=== PATIENT | male | born 1985 | race Caucasian/White ===

== ENCOUNTER 2019-08-31 22:15 | Emergency (ER) | payer SELFPAY ==
[2019-08-31 22:26] VITALS: BP 141/90; PULSE 71; RESP 18; TEMP 36.9; O2SAT 97; BMI 32.1
--- NOTE | 2019-08-31 23:16 | W.ED.ABDPA2 ---
HPI - Abdominal Pain General: Chief Complaint: Abdominal Pain Stated Complaint: cp Time Seen by Provider: 08/31/19 23:16 History of Present Illness: HPI narrative: Patient is a 34-year-old male who comes into the ED with abdominal pain, nausea, vomiting and diarrhea. Patient states that symptoms started about a month ago. He gets symptoms of epigastric pain, nausea, vomiting and diarrhea right after he eats. He says that he has a lot of epigastric pain when he lays down at night after he eats and so he has to lay more upright. He says he has a lot of diarrhea and he describes the stools as fatty and floating. The epigastric pain is is starts after he eats and many times it will radiate into his back. He has not eaten anything today to avoid it.pain. He is able to drink fluids and they do not bother him. He is not currently having much abdominal pain or nausea in the ED since he has not eaten anything all day. Denies feeling any acid reflux or indigestion. He does not currently take any Tums or any acid reflux medications. Associated Symptoms: Reports diarrhea, nausea and vomiting; Denies chills, constipation, dysuria, fever(s), hematochezia and hematuria Review of Systems Const: Denies: fever, chills or fatigue Eyes: Denies: change in vision or eye discomfort ENMT: Denies: throat pain, painful swallowing, nasal discharge or nasal congestion Card: Denies: chest pain, palpitations, edema, swelling of feet/ankles, shortness of breath on exertion or shortness of breath when lying down Resp: Denies: shortness of breath, productive cough or non-productive cough GI: Reports: abdominal pain, nausea, vomiting, diarrhea and fatty stool; Denies: constipation or blood in stool : Denies: flank pain, difficulty urinating, painful urination or blood in urine Musc: Denies: neck pain, back pain or extremity swelling Skin/Breast: Denies: rash or new lesion Neuro: Denies: headache, numbness in extremities or weakness in extremities PFS ED PFSH: Social History Smoking and tobacco status: current every day smoker Physical Exam Narrative: EXAM NARRATIVE: Patient is a 34-year-old male who is sitting comfortably on the exam bed when I enter the room. He is showing no signs of acute distress or pain. Const: COMMON NORMALS: oriented x3 HENMT: COMMON NORMALS: normocephalic HEAD & SCALP: normocephalic MOUTH: oral and palatal mucosa normal THROAT: posterior oropharynx normal and uvula midline Neck/C-Spine: COMMON NORMALS: supple GENERAL: Yes normal visual inspection Lymph: LYMPHATIC: no lymphadenopathy noted (no cervical lymphadenopathy noted.) Resp: COMMON NORMALS: normal respiratory effort, no retractions, no use of accessory muscles and clear to auscultation bilaterally AUSCULTATION: clear to auscultation bilaterally Cardio: COMMON NORMALS: regular rate, regular rhythm, S1 normal heart sound, S2 normal heart sound, no gallops, no clicks, no murmurs and peripheral pulses 2+ throughout RATE: regular rate RHYTHM: regular rhythm HEART SOUNDS: S1 normal and S2 normal PERIPHERAL PULSES: pulses 2+ throughout GI: COMMON NORMALS: normal to inspection, nondistended, normoactive bowel sounds, soft to palpation and no masses INSPECTION: Yes central obesity AUSCULTATION: Yes normoactive bowel sounds PALPATION: Yes soft and Yes tender Details: other (epigastric region) : COMMON NORMALS: Yes no CVA tenderness BLADDER/KIDNEY EXAM: Yes no CVA tenderness Back/Pelvis: COMMON NORMALS: no CVA tenderness Extremity: COMMON NORMALS: normal to inspection and normal capillary refill Neuro: COMMON NORMALS: oriented x3 GAIT: Yes normal gait Skin: COMMON NORMALS: no rashes or lesions noted GENERAL SKIN EXAM: no rashes or lesions noted and dry skin Course Vital Signs: Vital signs: Vital Signs Temperature 98.4 F 08/31/19 22:26 Pulse Rate 62 09/01/19 01:00 Respiratory Rate 18 09/01/19 00:23 Blood Pressure 138/88 09/01/19 01:30 Pulse Oximetry 97 09/01/19 00:30 MDM - Abdominal Pain Lab Data: Attestation: I reviewed the patient's lab results. Labs: Lab Results 08/31/19 08/31/19 08/31/19 Range/Units 23:13 23:13 23:13 WBC 13.5 H (4.0-10.0) 10^3/ uL RBC 5.39 H (4.1-5.3) 10^6/u L Hgb 16.6 (11.7-16.6) g/dL Hct 49.3 (42.0-52.0) % MCV 91.5 (80-94) fL MCH 30.8 (28.0-34.0) pg MCHC 33.7 (30.0-36.0) g/dL RDW 13.0 (12.1-15.1) % Plt Count 203 (130-400) 10^3/c mm MPV 11.2 H (7.4-10.4) fL Neut % (Auto) 66.2 % Lymph % (Auto) 26.7 % [place] % (Auto) 5.4 % Eos % (Auto) 0.8 % Baso % (Auto) 0.5 % Neut # (Auto) 8.9 H (1.8-7.7) 10^3/u L Lymph # (Auto) 3.6 (0.8-4.8) 10^3/u L [place] # (Auto) 0.7 (0.2-0.9) 10^3/u L Eos # (Auto) 0.1 (0.0-0.8) 10^3/u L Baso # (Auto) 0.1 (0.0-0.1) 10^3/u L Nucleated RBC % (a uto) 0 % Nucleated RBCs # 0.0 /100WBC Sodium 140 (136-145) mmol/L Potassium 4.1 (3.5-5.1) mmol/L Chloride 105 (98-107) mmol/L Carbon Dioxide 25 (22-29) mmol/L Anion Gap 14.1 (5-19) BUN 7 (6-20) mg/dL Creatinine 1.0 (0.7-1.2) mg/dL GFR Calculation 86.6 L (90-130) mL/min Glucose 105 (65-115) mg/dL Calculated Osmolal ity 286 (285-295) mOsm/k g Calcium 9.1 (8.5-10.5) mg/dL Total Bilirubin 0.5 (0.15-1.2) mg/dL AST 17 (0-40) U/L ALT 21 (0-41) U/L Alkaline Phosphata se 75 (40-130) IU/L Troponin T Baselin e 6 (0-15) ng/mL C-Reactive Protein 3.5 (0.0-4.9) mg/L Total Protein 7.1 (6.6-8.7) g/dL Albumin 4.0 (3.5-5.2) g/dL Globulin 3.1 (1.3-4.6) g/dL Lipase 18 (13-60) U/L Urine Color (Yellow) Urine Appearance (CLEAR) Urine pH (5-7) Ur Specific Gravit y (1.005-1.030) Urine Protein (Negative) Urine Glucose (UA) (Normal) Urine Ketones (Negative) Urine Blood (Negative) Urine Nitrate (Negative) Urine Bilirubin (NEGATIVE) Urine Urobilinogen (Negative) mg/dL Ur Leukocyte Daphne ase (Negative) 09/01/19 Range/Units 00:45 WBC (4.0-10.0) 10^3/ uL RBC (4.1-5.3) 10^6/u L Hgb (11.7-16.6) g/dL Hct (42.0-52.0) % MCV (80-94) fL MCH (28.0-34.0) pg MCHC (30.0-36.0) g/dL RDW (12.1-15.1) % Plt Count (130-400) 10^3/c mm MPV (7.4-10.4) fL Neut % (Auto) % Lymph % (Auto) % [place] % (Auto) % Eos % (Auto) % Baso % (Auto) % Neut # (Auto) (1.8-7.7) 10^3/u L Lymph # (Auto) (0.8-4.8) 10^3/u L [place] # (Auto) (0.2-0.9) 10^3/u L Eos # (Auto) (0.0-0.8) 10^3/u L Baso # (Auto) (0.0-0.1) 10^3/u L Nucleated RBC % (a uto) % Nucleated RBCs # /100WBC Sodium (136-145) mmol/L Potassium (3.5-5.1) mmol/L Chloride (98-107) mmol/L Carbon Dioxide (22-29) mmol/L Anion Gap (5-19) BUN (6-20) mg/dL Creatinine (0.7-1.2) mg/dL GFR Calculation (90-130) mL/min Glucose (65-115) mg/dL Calculated Osmolal ity (285-295) mOsm/k g Calcium (8.5-10.5) mg/dL Total Bilirubin (0.15-1.2) mg/dL AST (0-40) U/L ALT (0-41) U/L Alkaline Phosphata se (40-130) IU/L Troponin T Baselin e (0-15) ng/mL C-Reactive Protein (0.0-4.9) mg/L Total Protein (6.6-8.7) g/dL Albumin (3.5-5.2) g/dL Globulin (1.3-4.6) g/dL Lipase (13-60) U/L Urine Color Yellow (Yellow) Urine Appearance Clear (CLEAR) Urine pH 5 (5-7) Ur Specific Gravit y 1.025 (1.005-1.030) Urine Protein Neg (Negative) Urine Glucose (UA) Norm (Normal) Urine Ketones Negative (Negative) Urine Blood Neg (Negative) Urine Nitrate Negative (Negative) Urine Bilirubin 1+ H (NEGATIVE) Urine Urobilinogen 1 H (Negative) mg/dL Ur Leukocyte Daphne ase Negative (Negative) Imaging Data ^: CT Abd/Pel: Attestation: I personally reviewed and interpreted this imaging study as follows: Radiologist's impression: [address] [address] [address] Scan Report Signed Patient: Richard Morris Unit #: [id number] : 1985 Age/Sex: 34 / M ADM Date: 08/31/19 Loc: ER Room/Bed: Attending Dr: Ordering Provider/Ordering MD: Isac Elise Date of Service: 08/31/19 Procedure(s): CT abdomen pelvis w con* [id number] Accession Number(s): [id number] Report Number: [id number] PROCEDURE INFORMATION: Exam: CT Abdomen And Pelvis With Contrast Exam date and time: 08/31/2019 11:59 PM Age: 34 years old Clinical indication: Abdominal pain; Prior surgery; Surgery date: 6+ months; Surgery type: Appy; Patient HX: C/O epigastric pain w n/v/d intermittent x 1 month; Additional info: N, v, diarrhea, abd pain (epigastric and radiates to back) TECHNIQUE: Imaging protocol: Computed tomography of the abdomen and pelvis with intravenous contrast. Total DLP: 1610.71 mGy-cm Radiation optimization: All CT scans at this facility use at least one of these dose optimization techniques: automated exposure control; mA and/or kV adjustment per patient size (includes targeted exams where dose is matched to clinical indication); or iterative reconstruction. Contrast material: OMNI 300; Contrast volume: 95 ml; Contrast route: 20G; COMPARISON: No relevant prior studies available. FINDINGS: Lungs: Limited assessment lung bases reveals mild dependent atelectasis. Liver: Liver unremarkable. Gallbladder and bile ducts: Gallbladder without visible evidence of cholelithiasis. No intra or extrahepatic biliary ectasia. Pancreas: Pancreas unremarkable. No pancreatic ductal ectasia. Spleen: Spleen unremarkable. Adrenals: Adrenal glands unremarkable. Kidneys and ureters: Kidneys unremarkable. No evidence for hydronephrosis or perinephric fluid. Stomach and bowel: Very mild diverticulosis coli without evidence for diverticulitis. No evidence for adynamic or reactive ileus. No evidence for epiploic appendagitis. Appendix: Status post appendectomy. Intraperitoneal space: Unremarkable. No free air. No significant fluid collection. Vasculature: The abdominal aorta is nonaneurysmal. Minimal arterial sclerotic disease. Lymph nodes: No evidence for mesenteritis/panniculitis or mesenteric lymphadenitis/lymphadenopathy. Bladder: Unremarkable as visualized. Reproductive: Unremarkable as visualized. Bones/joints: Unremarkable. No acute fracture. Soft tissues: Unremarkable. CT/CT abdomen pelvis w con* [id number] IMPRESSION: No visible evidence for active or acute abdominal or pelvic pathologic process. Radiation Dose CTDIVOL = (mGy): DLP = 1610.71 (mGy-cm) Dictated By: Renan Cotter Signed By: Renan Cotter Signed Date/Time: 09/01/1933 DD/ Discharge Plan Discharge Patient Disposition: Home, Self-Care Clinical Impression: Gastroesophageal reflux disease Qualifiers: Esophagitis presence: esophagitis presence not specified Qualified Code(s): K21.9 - Gastro-esophageal reflux disease without esophagitis Condition: Stable Prescriptions: New Protonix 40 mg tablet,delayed release (DR/EC) 40 mg PO DAILY Qty: 20 RF: 0 Zofran 4 mg tablet 4 mg PO Q8H Qty: 20 RF: 0 Discharge Orders: Discharge Order (Routine); Ordered 09/01/19 Ordered By: Isac Elise Referrals: Kae Gold FNP [Primary Care Provider] - Discharge Diet: Advance as tolerated Discharge Activity: Resume usual activity Patient Instructions: Gastroesophageal Reflux Disease (ED) Activity Restrictions/Additional Instructions: Follow-up with your PCP in 5 to 7 days for reevaluation. Take Protonix as prescribed. Advance your diet as tolerated and start with more bland foods. I am also going to provide you with some Zofran to help with any nausea. Make sure to drink plenty of fluids and stay hydrated. Discharge Date/Time: 09/01/19 01:37 Coding Level of Care Code ED Storage And Backup Administrator for Qi 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
--- NOTE | 2019-08-31 23:17 | ECG_ITS ---
Measurements Intervals [place] Rate: 73 P: 43 OK: 152 QRS: -56 QRSD: 117 T: 30 QT: 408 QTc: 452 SINUS RHYTHM WITH OCCASIONAL VENTRICULAR PREMATURE COMPLEXES PATTERN CONSISTENT WITH PULMONARY DISEASE LEFT ANTERIOR FASCICULAR BLOCK [QRS AXIS <= -45, QR IN I, RS IN II] No previous ECG available for comparison Electronically Signed On 09-01-2019 20:48:02 CDT by Fernando Carcamo M.D. [email or web address]
[2019-08-31 23:23] LABS: Basophils # 0.1 10^3/uL (0.0-0.1); Basophils % 0.5 %; Eosinophils # 0.1 10^3/uL (0.0-0.8); Eosinophils % 0.8 %; Hematocrit 49.3 % (42.0-52.0); Hemoglobin 16.6 g/dL (11.7-16.6); Lymphocytes # 3.6 10^3/uL (0.8-4.8); Lymphocytes % 26.7 %; Mean Corpuscular HGB Conc 33.7 g/dL (30.0-36.0); Mean Corpuscular Hemoglobin 30.8 pg (28.0-34.0); Mean Corpuscular Volume 91.5 fL (80-94); Mean Platelet Volume 11.2 fL (7.4-10.4); Monocytes # 0.7 10^3/uL (0.2-0.9); Monocytes % 5.4 %; Neutrophils # 8.9 10^3/uL (1.8-7.7); Neutrophils % 66.2 %; Nucleated Red Blood Cells % 0 %; Platelet Count 203 10^3/cmm (130-400); Red Blood Count 5.39 10^6/uL (4.1-5.3); White Blood Count 13.5 10^3/uL (4.0-10.0)
--- NOTE | 2019-08-31 23:28 | CTR_ITS ---
PROCEDURE INFORMATION: Exam: CT Abdomen And Pelvis With Contrast Exam date and time: 08/31/2019 11:59 PM Age: 34 years old Clinical indication: Abdominal pain; Prior surgery; Surgery date: 6+ months; Surgery type: Appy; Patient HX: C/O epigastric pain w n/v/d intermittent x 1 month; Additional info: N, v, diarrhea, abd pain (epigastric and radiates to back) TECHNIQUE: Imaging protocol: Computed tomography of the abdomen and pelvis with intravenous contrast. Total DLP: 1610.71 mGy-cm Radiation optimization: All CT scans at this facility use at least one of these dose optimization techniques: automated exposure control; mA and/or kV adjustment per patient size (includes targeted exams where dose is matched to clinical indication); or iterative reconstruction. Contrast material: OMNI 300; Contrast volume: 95 ml; Contrast route: 20G; COMPARISON: No relevant prior studies available. FINDINGS: Lungs: Limited assessment lung bases reveals mild dependent atelectasis. Liver: Liver unremarkable. Gallbladder and bile ducts: Gallbladder without visible evidence of cholelithiasis. No intra or extrahepatic biliary ectasia. Pancreas: Pancreas unremarkable. No pancreatic ductal ectasia. Spleen: Spleen unremarkable. Adrenals: Adrenal glands unremarkable. Kidneys and ureters: Kidneys unremarkable. No evidence for hydronephrosis or perinephric fluid. Stomach and bowel: Very mild diverticulosis coli without evidence for diverticulitis. No evidence for adynamic or reactive ileus. No evidence for epiploic appendagitis. Appendix: Status post appendectomy. Intraperitoneal space: Unremarkable. No free air. No significant fluid collection. Vasculature: The abdominal aorta is nonaneurysmal. Minimal arterial sclerotic disease. Lymph nodes: No evidence for mesenteritis/panniculitis or mesenteric lymphadenitis/lymphadenopathy. Bladder: Unremarkable as visualized. Reproductive: Unremarkable as visualized. Bones/joints: Unremarkable. No acute fracture. Soft tissues: Unremarkable. CT/CT abdomen pelvis w con* [id number] IMPRESSION: No visible evidence for active or acute abdominal or pelvic pathologic process. Radiation Dose CTDIVOL = (mGy): DLP = 1610.71 (mGy-cm)
[2019-08-31 23:37] LABS: Alanine Aminotransferase 21 U/L (0-41); Alkaline Phosphatase 75 IU/L (40-130); Anion Gap 14.1 (5-19); Aspartate Amino Transferase 17 U/L (0-40); Blood Urea Nitrogen 7 mg/dL (6-20); C Reactive Protein 3.5 mg/L (0.0-4.9); Calcium 9.1 mg/dL (8.5-10.5); Carbon Dioxide 25 mmol/L (22-29); Chloride 105 mmol/L (98-107); Globulin 3.1 g/dL (1.3-4.6); Glomerular Filtration Rate 86.6 mL/min (90-130); Glucose 105 mg/dL (65-115); Lipase 18 U/L (13-60); Osmolality Calculated 286 mOsm/kg (285-295); Potassium 4.1 mmol/L (3.5-5.1); Sodium 140 mmol/L (136-145); Total Bilirubin 0.5 mg/dL (0.15-1.2); Total Protein 7.1 g/dL (6.6-8.7)
[2019-08-31 23:58] LABS: Troponin(5th) Baseline 6 ng/mL (0-15)
[2019-09-01 00:11] VITALS: BP 138/88
[2019-09-01] MEDS: iohexol 300 mg/mL 100 mL Btl IV (00:13)
[2019-09-01] MEDS: sodium chloride 0.9% 1,000 ML 999 ML IV (00:21)
[2019-09-01] MEDS: pantoprazole 40 mg SDV IVP (00:21)
[2019-09-01 00:23] VITALS: BP 138/88; PULSE 67; RESP 18; O2SAT 99
[2019-09-01 00:30] VITALS: BP 138/88; PULSE 62; O2SAT 97
[2019-09-01 01:00] VITALS: BP 138/88; PULSE 62
[2019-09-01 01:14] LABS: Add Urine Microscopic? NO
[2019-09-01 01:25] LABS: Bilirubin Urine 1+ (NEGATIVE); Blood Urine Neg (Negative); Glucose Urine UA Norm (Normal); Ketones Urine Negative (Negative); Leukocyte Esterase Urine Negative (Negative); Nitrate Urine Negative (Negative); Protein Urine Neg (Negative); Specific Gravity, Urine 1.025 (1.005-1.030); Urine Appearance Clear (CLEAR); Urine Color Yellow (Yellow); Urobilinogen Urine 1 mg/dL (Negative); pH Urine 5 (5-7)
[2019-09-01 01:30] VITALS: BP 138/88
== END 2019-09-01 01:37 | disposition home or self-care (01) ==
PROVIDERS: Emergency Medicine; Emergency Provider Physician Assistant; Family Provider Nurse Practitioner; PCP Nurse Practitioner
DX: K21.9 Gastro-esophageal reflux disease without esophagitis (principal); F17.200 Nicotine dependence, unspecified, uncomplicated
CPT/HCPCS: 12345; 74177; 80053; 81003; 83690; 84484; 85025; 86140; 93005; 96361; 96374; 96375; 99283; 99284; A9270; C9113; J7030; Q9967

== ENCOUNTER 2021-07-07 20:48 | Emergency (ER) | payer SELFPAY ==
[2021-07-07 20:56] VITALS: BP 149/93; PULSE 77; RESP 20; TEMP 36.6; O2SAT 97; BMI 32.1
--- NOTE | 2021-07-07 21:33 | W.ED.EXTPRO ---
HPI - Extremity Problem General: Chief complaint: Extremity Injury, Upper Stated complaint: cant lift RT arm, has had blood clot in brain Time Seen by Provider: 07/07/21 21:33 History of Present Illness: HPI Narrative: Mr Morrsi is a 36-year-old gentleman with significant past medical history of stroke who presents to the emergency department due to shoulder pain. He reports symptom onset earlier today when he woke up. He denies known preceding injury or other known cause. He denies frequent history of pain or injury to shoulder previously. He notes increased pain with abduction of the arm at the shoulder joint greater than 45 degrees off the torso. Mild associated full sensation of swelling. No weakness or sensory changes. Overall the course of symptoms has persisted. He has tried [id number] medications without significant relief. Intensity is moderate to severe. No other specific changes in health, chest pain, shortness of breath, exacerbating, or relieving factors identified. MD Complaint: extremity pain and extremity swelling Onset (ago): hour(s) Pain Consistency: constant Location: right and upper extremity Severity scale (1-10): 7 Quality: aching Radiation: distal Relieving factors: nothing Exacerbating factors: range of motion Associated symptoms: Reports no associated symptoms Review of Systems General: Reports: 10 or more systems reviewed and unremarkable except in HPI and below PFSH ED PFSH: Medical History Stroke Surgical History History of abdominal surgery Social History Smoking and tobacco status: current every day smoker cigarettes Packs smoked per day: 0.5 Quit status (tobacco): not considering quitting Second hand smoke exposure: Yes Alcohol intake: never Desire information about alcohol rehabilitation?: No Desire information about substance/drug rehabilitation?: No History of recent travel: No Current gender identity: Male Physical Exam Const: COMMON NORMALS: alert GENERAL APPEARANCE: cooperative and well developed HENMT: COMMON NORMALS: normocephalic and atraumatic HEAD & SCALP: normocephalic and atraumatic THROAT: posterior oropharynx normal Eye: COMMON NORMALS: conjunctivae normal CONJUNCTIVA: Yes conjunctivae normal SCLERA: sclerae normal Neck/C-Spine: COMMON NORMALS: supple GENERAL: Yes trachea midline Resp: COMMON NORMALS: normal respiratory effort EFFORT & INSPECTION: Yes able to speak in complete sentences Cardio: COMMON NORMALS: regular rate and regular rhythm RATE: regular rate RHYTHM: regular rhythm GI: COMMON NORMALS: Soft to palpation PALPATION: Yes Soft to palpation and No Tenderness to palpation present (GI) PERCUSSION: normal to percussion Extremity: NARRATIVE EXTREMITY EXAM: Right upper extremity: Tenderness to palpation of the anterior aspect of the upper arm, mild firmness without overlying skin changes compared to contralateral side. GENERAL: Yes edema RIGHT UPPER EXTREMITY: Yes upper arm (Tenderness) Neuro: COMMON NORMALS: moves all extremities SENSORIUM/ORIENTATION: Yes alert and No Orientation impaired Psych: COMMON NORMALS: mental status grossly normal and Normal thought process present THOUGHT PROCESS: Normal thought process present Course ED course: - Patient was seen and evaluated by me at bedside -Vital signs obtained - Initial evaluation notable for exam as above, limited range of motion secondary to pain as well as tenderness and fullness/swelling. -Symptom treatment ordered - Imaging notable for no acute bony pathology on x-ray. Partially occlusive subclavian thrombus noted. Discussed case with cardiology interventional on-call, no acute indication for embolectomy as patient has good pulses and there is no sensory changes. - Upon serial reexamination after treatment the patient was mildly improved with treatment - Based on patient history, evaluation, labs, and imaging as interpreted the most likely cause of the patient's condition is partially occlusive arterial subclavian thrombus. - Patient given 30-day free voucher for [email or web address] - The results of ED evaluation were discussed with the patient including prescriptions and/or symptomatic cares (if applicable) including appropriate and responsible use, followup plan, and return precautions. The patient verbalized understanding and felt safe for discharge. - Patient discharged in satisfactory condition. Note: Click bubbles or prepopulated campuzano in note writing are used for assistance with data collection and billing and are inherently more limited than narrative and other text portions of this note. Please use narrative for additional clinical history and defer to narrative/free test for any case of contradictory information. If information appears in only free text or click bubble it should be considered present or absent as reported. Please contact note radio news writer for clarifications of clinical information or contradictory information. MDM is a brief summary, contradictory or erroneous seeming information should be clarified and full note should be reviewed. Vital Signs: Vital signs: Vital Signs Temperature 97.8 F 07/07/21 20:56 Pulse Rate 62 07/08/21 00:28 Respiratory Rate 18 07/08/21 00:28 Blood Pressure 126/75 07/08/21 00:28 Pulse Oximetry 98 07/08/21 00:28 MDM - Extremity (Nontraumatic) MDM Narrative: Medical decision making narrative: 36-year-old gentleman with history of stroke of unclear etiology presenting with arm fullness and pain, mild edema noted, distal CMS intact. Patient found to have partially occlusive subclavian thrombus which will be treated with anticoagulation. Based on history and clinical examination no indication for pre-initiation head imaging needed. Patient discharged in satisfactory condition. Medical Records: Attestation: I reviewed the patient's medical records. Lab Data: Attestation: I reviewed the patient's lab results. Discharge Plan Discharge Patient Disposition: Home Clinical Impression: Arm pain, Dvt femoral (deep venous thrombosis) Condition: Stable Prescriptions: New Eliquis DVT-PE Treat 30D Start 5 mg (74 tabs) tablets,dose pack See Rx Instructions .ROUTE .COMPLEX Qty: 74 RF: 0 No Action ibuprofen 800 mg tablet 800 mg PO Q8H RF: 0 esomeprazole magnesium [Nexium] 20 mg capsule,delayed release(DR/EC) 20 mg PO DAILY RF: 0 Discharge Orders: Discharge ED (Routine); Ordered 07/08/21 Ordered By: Christiano Boswell Discharge Diet: Usual diet Discharge Activity: Resume usual activity Patient Instructions: Apixaban (By mouth) (Eliquis), Deep Vein Thrombosis (ED), Arm Pain (ED) Activity Restrictions/Additional Instructions: Thank you for visiting the emergency department. You were seen and evaluated for arm pain. The exact cause of your symptoms is unclear though you were found to have a partially occlusive deep vein thrombosis of the right subclavian vein. The treatment for this is a medication called Eliquis. This medication helps stabilize and dissolve the clot however the medication also increases risk of bleeding. Please establish with a primary care provider. Please stop smoking. Return to the emergency department for any evidence of bleeding, any traumatic injury, confusion or any new neurologic symptoms, uncontrolled pain, new numbness tingling or color changes of your arm, chest pain, shortness of breath, or anything else that you are concerned about a feel needs emergency department evaluation. Coding Level of Care Code ED Nurse General Duty for Qi Sullivan
--- NOTE | 2021-07-07 21:43 | XRR_ITS ---
PROCEDURE INFORMATION: Exam: XR Right Humerus Exam date and time: 07/07/2021 9:43 PM Age: 36 years old Clinical indication: Pain; Upper arm; Right TECHNIQUE: Imaging protocol: XR Right humerus. Views: 2 or more views. COMPARISON: No relevant prior studies available. FINDINGS: Bones/joints: No acute fracture or dislocation. Soft tissues: Normal. XR/[place] [id number] IMPRESSION: No acute fracture or dislocation.
[2021-07-07] MEDS: ketorolac 30 mg/mL INJ 15 MG IM (22:02)
[2021-07-07] MEDS: methocarbamol 750 mg Tablet PO (22:02)
--- NOTE | 2021-07-07 22:10 | USR_ITS ---
PROCEDURE INFORMATION: Exam: US Duplex Right Upper Extremity Veins, Limited Exam date and time: 07/07/2021 10:10 PM Age: 36 years old Clinical indication: Pain; Arm, upper; Right; Patient HX: PT states he had blood clot on the brain on month ago; Additional info: Pain, swelling, R/O dvt TECHNIQUE: Imaging protocol: Real-time Duplex ultrasound of the Right Upper Extremity with 2-D armijo scale, color Doppler flow and spectral waveform analysis with image documentation. Limited exam focused on the right upper extremity veins. COMPARISON: CR (UP EX, ) 07/07/2021 9:50 PM FINDINGS: Right deep veins: Nonocclusive thrombus present in the right subclavian vein. Right superficial veins: Unremarkable. Visualized cephalic and basilic veins are patent without thrombus. Soft tissues: Unremarkable. US/[place] [id number] IMPRESSION: Nonocclusive thrombus present in the right subclavian vein.
[2021-07-08] MEDS: enoxaparin 120 mg/0.8 mL Syringe 115 MG SUBCUT
[2021-07-08 00:28] VITALS: BP 126/75; PULSE 62; RESP 18; O2SAT 98
== END 2021-07-08 00:15 | disposition home or self-care (01) ==
PROVIDERS: Emergency Provider Emergency Medicine
DX: I82.621 Acute embolism and thrombosis of deep veins of right upper extremity (principal); Z86.73 Personal history of transient ischemic attack (TIA), and cerebral infarction without residual deficits; F17.210 Nicotine dependence, cigarettes, uncomplicated
CPT/HCPCS: 73060; 93971; 96372; 99283; J1650; J1885

== ENCOUNTER 2021-12-13 17:45 | Emergency (ER) | payer SELFPAY ==
[2021-12-13 17:50] VITALS: BP 124/82; PULSE 62; RESP 17; TEMP 36.5; O2SAT 96; BMI 32.7
--- NOTE | 2021-12-13 17:52 | XRR_ITS ---
PROCEDURE INFORMATION: Exam: XR Chest Exam date and time: 12/13/2021 6:07 PM Age: 36 years old Clinical indication: Chest wall pain; Additional info: Chest pain TECHNIQUE: Imaging protocol: Radiologic exam of the chest. Views: 1 view. COMPARISON: [place] [id number] 07/07/2021 9:50 PM FINDINGS: Lungs: Left lower lobe atelectasis versus minimal infiltrate. Pleural spaces: Unremarkable. No pleural effusion. No pneumothorax. Heart/Mediastinum: Unremarkable. No cardiomegaly. Bones/joints: Unremarkable. XR/XR chest 1V portable [id number] IMPRESSION: Left lower lobe atelectasis versus minimal infiltrate.
--- NOTE | 2021-12-13 17:53 | ECG_ITS ---
[facility] Test Date: 2021-12-13 Pat Name: Richard Morris Department: Room: Gender: Male Manager Social Media: : 1985 Requested By: Reji Foss Order Number: [id number] Jairo MD: Henry Jiang M.D. Measurements Intervals [place] Rate: 64 P: 9 NV: 172 QRS: -53 QRSD: 102 T: 35 QT: 402 QTc: 417 Interpretive Statements SINUS RHYTHM LEFT ANTERIOR FASCICULAR BLOCK [QRS AXIS <= -45, QR IN I, RS IN II] Compared to ECG 08/31/2019 23:57:54 Ventricular premature complex(es) no longer present Electronically Signed On 12-13-2021 22:30:17 CDT by Henry Jiang M.D. [id number]
[2021-12-13 17:55] VITALS: BP 124/82; PULSE 62; RESP 17; TEMP 36.5; O2SAT 96
--- NOTE | 2021-12-13 18:11 | W.ED.SOB ---
HPI - SOB/Dyspnea General: Chief Complaint: Shortness of Breath/Dyspnea Stated Complaint: SOB Time Seen by Provider: 12/13/21 17:52 Source: patient and EMS Mode of arrival: EMS Limitations: no limitations History of Present Illness: HPI Narrative: 36-year-old male has a history of a CVA in the past he is currently on Eliquis states that over the last 3 days has been having a sharp chest pain along with shortness of breath. States he is also had a productive cough. He states that his pain seems to be exertional and worse with inspiration as well. He was sent here from clinic with concern of a possible blood clot. He states his pain is sharp rates it a 6 out of 10 currently. He is in no distress denies any fever but has had a cough. Associated symptoms: Reports chest pain; Deny abdominal pain, fever(s), nausea or vomiting Review of Systems Const: Denies: fever(s), chills, body aches or change in appetite Eyes: Denies: blurry vision or eye discomfort ENMT: Denies: throat pain or dental pain Card: Reports: chest pain Resp: Reports: dyspnea and productive cough GI: Denies: abdominal pain, nausea, vomiting or diarrhea : Denies: dysuria Musc: Denies: neck pain or back pain Skin/Breast: Denies: rash Neuro: Denies: headache(s) Psych: Denies: depression Aries/Lymph: Denies: easy bruising All/Imm: Denies: urticaria PFSH ED PFSH: Medical History Stroke Surgical History History of abdominal surgery Social History Smoking and tobacco status: current every day smoker cigarettes Packs smoked per day: 0.5 Quit status (tobacco): not considering quitting Second hand smoke exposure: Yes Alcohol intake: never Desire information about alcohol rehabilitation?: No Desire information about substance/drug rehabilitation?: No History of recent travel: No Current gender identity: Male Physical Exam Const: COMMON NORMALS: no acute distress, patient oriented x3 and healthy appearing HENMT: COMMON NORMALS: normocephalic and atraumatic HEAD & SCALP: normocephalic and atraumatic Eye: COMMON NORMALS: Equal, round and reactive pupils present and EOMs intact bilaterally PUPIL: Yes Equal, round and reactive pupils present Neck/C-Spine: COMMON NORMALS: full ROM and supple Chest: COMMONS NORMALS: normal inspection of the chest and normal palpation of entire chest wall Resp: COMMON NORMALS: normal respiratory effort, No retractions, No use of accessory muscles and clear to auscultation bilaterally AUSCULTATION: clear to auscultation bilaterally Cardio: COMMON NORMALS: regular rate, regular rhythm and No murmurs present (Cardio) RATE: regular rate RHYTHM: regular rhythm GI: COMMON NORMALS: Normal to inspection, nondistended, normoactive bowel sounds present, Soft to palpation, non-tender and no masses PALPATION: Yes Soft to palpation Extremity: COMMON NORMALS: normal to inspection and full ROM Neuro: COMMON NORMALS: patient oriented x3, moves all extremities and no focal motor deficits Psych: COMMON NORMALS: mental status grossly normal, Normal thought process present and cooperative THOUGHT PROCESS: Normal thought process present Skin: COMMON NORMALS: no rashes or lesions noted and no wounds GENERAL SKIN EXAM: no rashes or lesions noted Course Vital Signs: Vital signs: Vital Signs Temperature 97.7 F 12/13/21 17:55 Pulse Rate 62 12/13/21 17:55 Respiratory Rate 16 12/13/21 18:15 Blood Pressure 124/82 12/13/21 17:55 Pulse Oximetry 96 12/13/21 17:55 MDM - SOB/Dyspnea Medical Decision Making Patient presents here with cough shortness of breath and chest pain. This been going on for days x-ray does show a likely pneumonia and his symptoms are consistent with pneumonia. His troponin here is negative D-dimer is negative he has no signs of pulmonary embolism or cardiac cause for his pain he is stable for discharge is to follow-up PCP and return if worsening he understands agrees to plan. Lab Data : 12/13/21 18:04 12/13/21 18:04 Labs/Radiology: Radiology Impressions Chest X-Ray 12/13/21 17:52 IMPRESSION: Left lower lobe atelectasis versus minimal infiltrate. Laboratory Results WBC 11.2 10^3/uL (4.0-10.0) H 12/13/21 18:04 RBC 5.44 10^6/uL (4.1-5.3) H 12/13/21 18:04 Hgb 17.0 g/dL (11.7-16.6) H 12/13/21 18:04 Hct 50.3 % (42.0-52.0) 12/13/21 18:04 MCV 92.5 fl (80-94) 12/13/21 18:04 MCH 31.3 pg (28.0-34.0) 12/13/21 18:04 MCHC 33.8 g/dL (30.0-36.0) 12/13/21 18:04 RDW 13.2 % (12.1-15.1) 12/13/21 18:04 Plt Count 198 10^3/cmm (130-400) 12/13/21 18:04 MPV 11.9 fL (7.4-10.4) H 12/13/21 18:04 Neut % (Auto) 50.4 % 12/13/21 18:04 Lymph % (Auto) 38.9 % 12/13/21 18:04 Isabella % (Auto) 7.9 % 12/13/21 18:04 Eos % (Auto) 1.5 % 12/13/21 18:04 Baso % (Auto) 0.9 % 12/13/21 18:04 Neut # (Auto) 5.62 10^3/uL (1.8-7.7) 12/13/21 18:04 Lymph # (Auto) 4.3 10^3/uL (0.8-4.8) 12/13/21 18:04 Isabella # (Auto) 0.9 10^3/uL (0.2-0.9) 12/13/21 18:04 Eos # (Auto) 0.2 10^3/uL (0.0-0.8) 12/13/21 18:04 Baso # (Auto) 0.1 10^3/uL (0.0-0.1) 12/13/21 18:04 Nucleated RBC % (auto) 0 % 12/13/21 18:04 Nucleated RBCs # 0.0 /100WBC 12/13/21 18:04 D-Dimer <= 0.27 ug/mIFEU (0-0.59) 12/13/21 18:04 Sodium 136 mmol/L (136-145) 12/13/21 18:04 Potassium 3.7 mmol/L (3.5-5.1) 12/13/21 18:04 Chloride 102 mmol/L (98-107) 12/13/21 18:04 Carbon Dioxide 23 mmol/L (22-29) 12/13/21 18:04 Anion Gap 14.7 (5-19) 12/13/21 18:04 BUN 13 mg/dL (6-20) 12/13/21 18:04 Creatinine 0.7 mg/dL (0.7-1.2) 12/13/21 18:04 GFR Calculation 129.1 mL/min (90-130) 12/13/21 18:04 Glucose 89 mg/dL (65-115) 12/13/21 18:04 Calculated Osmolality 282 mOsm/kg (285-295) L 12/13/21 18:04 Calcium 9.2 mg/dL (8.5-10.5) 12/13/21 18:04 Total Bilirubin 0.3 mg/dL (0.15-1.2) 12/13/21 18:04 AST 19 U/L (0-40) 12/13/21 18:04 ALT 30 U/L (0-41) 12/13/21 18:04 Alkaline Phosphatase 83 IU/L (40-130) 12/13/21 18:04 Troponin T Baseline 6 ng/L (0-15) 12/13/21 18:04 Total Protein 7.1 g/dL (6.6-8.7) 12/13/21 18:04 Albumin 4.3 g/dL (3.5-5.2) 12/13/21 18:04 Globulin 2.8 g/dL (1.3-4.6) 12/13/21 18:04 EKG Data EKG 1: I personally reviewed and interpreted this EKG as follows: EKG Interpretation Date: 12/13/21 EKG interpretation time: 17:54 Interpretation: nsr hr [address] or t wave abnormalities qrs 102 qtc 412 EKG 2: I personally reviewed and interpreted this EKG as follows: EKG Interpretation Date: 12/13/21 EKG interpretation time: 19:56 Interpretation: sinus adam hr [address] or t wave abnormalities qrs 108 qtc 431 Discharge Plan Discharge Patient Disposition: Home Clinical Impression: Community acquired pneumonia Qualifiers: Laterality: left Lung location: lower lobe of lung Qualified Code(s): J18.9 - Pneumonia, unspecified organism Condition: Stable Prescriptions: New doxycycline hyclate 100 mg tablet 100 mg PO BID 7 Days Qty: 14 0RF No Action ibuprofen 800 mg tablet 800 mg PO Q8H 0RF esomeprazole magnesium [Nexium] 20 mg capsule,delayed release(DR/EC) 20 mg PO DAILY 0RF Eliquis DVT-PE Treat 30D Start 5 mg (74 tabs) tablets,dose pack See Rx Instructions .ROUTE .COMPLEX Qty: 74 0RF Rx Instructions: orally per package directions Discharge Orders: Discharge ED (Routine); Ordered 12/13/21 Ordered By: Carmelina Hernandez Discharge Diet: Advance as tolerated Discharge Activity: Resume usual activity Patient Instructions: Bacterial Pneumonia (ED) Coding Level of Care Code 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
[2021-12-13] MEDS: ondansetron 2 mg/ML SDV 2 mL 4 MG IVP (18:14)
[2021-12-13 18:15] VITALS: RESP 16
[2021-12-13] MEDS: morphine 4 mg/mL SDV 1 mL IVP (18:15)
[2021-12-13 18:42] LABS: Basophils # 0.1 10^3/uL (0.0-0.1); Basophils % 0.9 %; Eosinophils # 0.2 10^3/uL (0.0-0.8); Eosinophils % 1.5 %; Hematocrit 50.3 % (42.0-52.0); Lymphocytes # 4.3 10^3/uL (0.8-4.8); Lymphocytes % 38.9 %; Mean Corpuscular HGB Conc 33.8 g/dL (30.0-36.0); Mean Corpuscular Hemoglobin 31.3 pg (28.0-34.0); Mean Corpuscular Volume 92.5 fl (80-94); Mean Platelet Volume 11.9 fL (7.4-10.4); Monocytes # 0.9 10^3/uL (0.2-0.9); Monocytes % 7.9 %; Neutrophils # 5.62 10^3/uL (1.8-7.7); Neutrophils % 50.4 %; Nucleated Red Blood Cells % 0 %; Platelet Count 198 10^3/cmm (130-400); Red Blood Count 5.44 10^6/uL (4.1-5.3); Red Cell Distribution Width 13.2 % (12.1-15.1); White Blood Count 11.2 10^3/uL (4.0-10.0)
[2021-12-13 18:45] LABS: Alanine Aminotransferase 30 U/L (0-41); Albumin Level 4.3 g/dL (3.5-5.2); Alkaline Phosphatase 83 IU/L (40-130); Anion Gap 14.7 (5-19); Aspartate Amino Transferase 19 U/L (0-40); Blood Urea Nitrogen 13 mg/dL (6-20); Calcium 9.2 mg/dL (8.5-10.5); Carbon Dioxide 23 mmol/L (22-29); Chloride 102 mmol/L (98-107); Creatinine Clr Calc Pharmacy 201.0349; Globulin 2.8 g/dL (1.3-4.6); Glomerular Filtration Rate 129.1 mL/min (90-130); Glucose 89 mg/dL (65-115); Osmolality Calculated 282 mOsm/kg (285-295); Potassium 3.7 mmol/L (3.5-5.1); Sodium 136 mmol/L (136-145); Total Bilirubin 0.3 mg/dL (0.15-1.2); Total Protein 7.1 g/dL (6.6-8.7)
[2021-12-13 18:46] LABS: Troponin(5th) Baseline 6 ng/L (0-15)
[2021-12-13 19:47] LABS: D Dimer <= 0.27 ug/mIFEU (0-0.59)
--- NOTE | 2021-12-13 19:53 | ECG_ITS ---
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 Measurements Intervals [place] Rate: 59 P: 11 ND: 185 QRS: -45 QRSD: 108 T: 52 QT: 433 QTc: 429 Interpretive Statements SINUS BRADYCARDIA LEFT ANTERIOR FASCICULAR BLOCK [QRS AXIS <= -45, QR IN I, RS IN II] Compared to ECG 12/13/2021 17:54:03 Sinus rhythm no longer present Electronically Signed On 12-13-2021 22:38:16 CDT by Henry Jiang M.D. [id number]
[2021-12-13 20:25] LABS: INR 0.97 (0.8-1.2)
== END 2021-12-13 20:09 | disposition home or self-care (01) ==
PROVIDERS: Family Medicine; Emergency Provider Emergency Medicine
DX: J18.9 Pneumonia, unspecified organism (principal); Z79.01 Long term (current) use of anticoagulants; Z86.73 Personal history of transient ischemic attack (TIA), and cerebral infarction without residual deficits; F17.210 Nicotine dependence, cigarettes, uncomplicated
CPT/HCPCS: 71045; 80053; 84484; 85025; 85378; 85610; 93005; 96374; 96375; 99285; J2270; J2405

== ENCOUNTER 2024-10-12 11:48 | Emergency (ER) | payer SELFPAY ==
[2024-10-12 11:59] VITALS: BP 148/95; PULSE 90; TEMP 36.6; O2SAT 95
--- NOTE | 2024-10-12 13:09 | ECG_ITS ---
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 Measurements Intervals [place] Rate: 82 P: 27 CT: 165 QRS: -75 QRSD: 92 T: 24 QT: 347 QTc: 407 Interpretive Statements SINUS RHYTHM PATTERN CONSISTENT WITH PULMONARY DISEASE LEFT ANTERIOR FASCICULAR BLOCK [QRS AXIS <= -45, QR IN I, RS IN II] NONSPECIFIC ST ELEVATION [0.05+ mV ST ELEVATION] INTERPRETATION BASED ON A DEFAULT AGE OF 40 YEARS Compared to ECG 12/13/2021 19:56:55 ST (T wave) deviation now present Sinus bradycardia no longer present Electronically Signed On 10-13-2024 18:52:35 CDT by Henry Jiang M.D. [email or web address] [id number]
--- NOTE | 2024-10-12 13:10 | XRR_ITS ---
PROCEDURE INFORMATION: Exam: XR Chest Exam date and time: 10/12/2024 1:15 PM Age: 39 years old Clinical indication: Chest pressure; Intermittent chest pain x 2 years; Sometimes positional; HX stroke TECHNIQUE: Imaging protocol: Radiologic exam of the chest. Views: 1 view. COMPARISON: CR XR chest 1V portable [id number] 12/13/2021 6:07 PM FINDINGS: Lungs: Unremarkable. No consolidation or mass. Pleural spaces: Unremarkable. No pleural effusion. No pneumothorax. Heart/Mediastinum: Unremarkable. No cardiomegaly. Diaphragm: There is chronic elevation of the right hemidiaphragm. Bones/joints: Unremarkable. XR/XR chest 1V portable [id number] IMPRESSION: No acute findings.
--- NOTE | 2024-10-12 13:21 | W.ED.CHESTPA ---
HPI - Chest Pain General: Chief Complaint: Chest Pain Stated Complaint: chest pain Time Seen by Provider: 10/12/24 13:02 Source: patient Mode of arrival: ambulatory Limitations: no limitations History of Present Illness: Patient is a 39-year-old male with past medical history of TIA who presents to the emergency department complaining of substernal/epigastric chest pain beginning 2 years ago. Patient states he has been checked out multiple times for this but is always told he has acid reflux. Does not report any new or concerning findings, just states that his mom told him to come get it checked out again today as he had severe pain with waking this morning. Also notes that he has not had an appetite and occasionally the pain will wake him up out of sleep. 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 No other medications reported at this time. He states that with the pain he will get short of breath, and intermittently will get dizziness and lightheadedness. He states that the pain is an intermittent sharp sensation, no radiation reported though he does note that last week he had an episode while driving where pain radiated down his left upper extremity. No pertinent cardiac history reported at this time, reportedly has never had a cardiac catheter echocardiogram. At this time he is minimally hypertensive, rest of his vitals unremarkable. He also is stating that he wants his blood type checked out. He is a current everyday smoker, denies alcohol use. MD complaint: chest pain Pertinent past history: other (TIA, on Eliquis) Onset (ago): year(s) Timing of current episode: episodic Prior episodes: Yes Onset: during rest Pain location: substernal Pain radiation: none Severity: severe Quality: sharp Relieving factors: nothing Exacerbating factors: nothing Associated symptoms: Deny abdominal pain, dyspnea, fever(s), nausea, palpitations or vomiting Treatment prior to arrival: none Risk Factors: Coronary artery disease risk factors: smoking history Thoracic aortic dissection risk factors: none Related Data Home Medications ?Medication ?Instructions ?Recorded ?Confirmed No Known Home Medications 10/12/24 10/12/24 Allergies Allergy/AdvReac Type Severity Reaction Status Date / Time No Known Allergies Allergy Verified 10/12/24 12:01 Review of Systems General: Reports: 10 or more systems reviewed and unremarkable except in HPI and below Const: Denies: fever(s), chills or fatigue Eyes: Denies: change in vision ENMT: Denies: throat pain, ear or mastoid pain or nasal discharge Card: Denies: chest pain, palpitations, swelling of feet/ankles or lightheadedness Resp: Denies: dyspnea, productive cough or wheezing GI: Denies: abdominal pain, nausea, vomiting, diarrhea or constipation : Denies: flank pain, difficulty urinating, dysuria or urinary frequency Musc: Denies: neck pain, back pain or joint pain Skin/Breast: Denies: rash Neuro: Denies: headache(s), numbness in extremities or weakness in extremities PFSH ED PFSH: Medical History Stroke Surgical History History of abdominal surgery Social History Smoking and tobacco/nicotine status: current every day tobacco/nicotine user cigarettes Packs smoked per day: 0.5 Quit status (tobacco/nicotine): not considering quitting Second hand smoke exposure: Yes Alcohol intake: never Substance/Drug Use: never Current gender identity: Male Physical Exam Const: COMMON NORMALS: no acute distress, patient oriented x3 and no limitations GENERAL APPEARANCE: cooperative, comfortable and well developed ORIENTATION/CONSCIOUSNESS: Yes awake, Yes oriented to person, Yes oriented to place and Yes oriented to time HENMT: COMMON NORMALS: normocephalic, atraumatic and hearing grossly normal bilaterally HEAD & SCALP: normocephalic and atraumatic Eye: COMMON NORMALS: Equal, round and reactive pupils present, EOMs intact bilaterally and conjunctivae normal CONJUNCTIVA: Yes conjunctivae normal PUPIL: Yes Equal, round and reactive pupils present Neck/C-Spine: COMMON NORMALS: full ROM, supple and no JVD Resp: COMMON NORMALS: normal respiratory effort, No retractions, No use of accessory muscles and clear to auscultation bilaterally AUSCULTATION: clear to auscultation bilaterally Cardio: COMMON NORMALS: no JVD, regular rate, regular rhythm, No clicks present (Cardio), No murmurs present (Cardio) and No rub (Cardio) RATE: regular rate RHYTHM: regular rhythm GI: COMMON NORMALS: Normal to inspection, nondistended, normoactive bowel sounds present and Soft to palpation AUSCULTATION: Yes normoactive bowel sounds PALPATION: Yes Soft to palpation RECTAL EXAM: Yes deferred OTHER: Reproducible tenderness to palpation to epigastric region Extremity: COMMON NORMALS: normal to inspection, full ROM and capillary refill normal Neuro: COMMON NORMALS: patient oriented x3, moves all extremities, no focal motor deficits and no sensory deficits noted SENSORIUM/ORIENTATION: Yes oriented to person, Yes oriented to place and Yes oriented to time Skin: COMMON NORMALS: no rashes or lesions noted GENERAL SKIN EXAM: no rashes or lesions noted Course Vital Signs: Vital signs: Vital Signs Temperature 97.8 F 10/12/24 11:59 Pulse Rate 75 10/12/24 14:46 Respiratory Rate 17 10/12/24 14:00 Blood Pressure 140/77 10/12/24 14:46 Pulse Oximetry 96 10/12/24 14:46 Oxygen Delivery Me thod Room Air 10/12/24 11:59 MDM - Chest Pain Medical Decision Making This patient presented with chest pain, substernal, stating he has dealt with it for years yet does not see regular doctor or cardiology. Medical history including reported TIA and being on Eliquis. He is also current everyday smoker. EKG obtained reviewed physician did not show any signs of acute STEMI. Chest x-ray is unremarkable. His baseline troponin was normal, rest of his lab work unremarkable. He denies GI cocktail here stating that he has had these in the past and they do not seem to do anything. His vitals have remained stable, with the onset of symptoms reported and lack of workup findings, I do not suspect ACS at this time and will refer him to cardiology for further outpatient workup to include potential echocardiogram. If this is related to gastrointestinal, told him that he may require a scope. In the meantime told him to return if his pain seems to worsen or change, or he develops any other new concerning findings. His heart score today was 1 due to the risk factors, otherwise stable for discharge at this time with strict return precautions, which he verbalized understanding. Lab Data 10/12/24 13:17 10/12/24 13:17 Radiology Impressions Chest X-Ray 10/12/24 13:10 IMPRESSION: No acute findings. Laboratory Results WBC 10.27 10^3/uL (3.29-11.43) 10/12/24 13:17 RBC 5.79 10^6/uL (3.85-5.65) H 10/12/24 13:17 Hgb 18.30 g/dL (11.27-16.99) H 10/12/24 13:17 Hct 52.2 % (37-53) 10/12/24 13:17 MCV 90.2 fl (82-101) 10/12/24 13:17 MCH 31.6 pg (27-33) 10/12/24 13:17 MCHC 35.1 g/dL (30-55) 10/12/24 13:17 RDW 12.8 % (12.1-15.1) 10/12/24 13:17 Plt Count 204 10^3/cmm (157-399) 10/12/24 13:17 MPV 11.2 fL (7.4-10.4) H 10/12/24 13:17 Neut % (Auto) 48.9 % 10/12/24 13:17 Lymph % (Auto) 39.8 % 10/12/24 13:17 Hendry % (Auto) 8.2 % 10/12/24 13:17 Eos % (Auto) 1.8 % 10/12/24 13:17 Baso % (Auto) 0.9 % 10/12/24 13:17 Neut # (Auto) 5.03 10^3/uL (1.8-7.7) 10/12/24 13:17 Lymph # (Auto) 4.1 10^3/uL (0.8-4.8) 10/12/24 13:17 Hendry # (Auto) 0.8 10^3/uL (0.2-0.9) 10/12/24 13:17 Eos # (Auto) 0.2 10^3/uL (0.0-0.8) 10/12/24 13:17 Baso # (Auto) 0.1 10^3/uL (0.0-0.1) 10/12/24 13:17 Nucleated RBC % (auto) 0 % 10/12/24 13:17 Nucleated RBCs # 0.0 /100WBC 10/12/24 13:17 D-Dimer <= 0.27 ug/mLFEU (0-0.59) 10/12/24 13:17 Sodium 137 mmol/L (136-145) 10/12/24 13:17 Potassium 4.4 mmol/L (3.5-5.1) 10/12/24 13:17 Chloride 101 mmol/L (98-107) 10/12/24 13:17 Carbon Dioxide 23 mmol/L (22-29) 10/12/24 13:17 Anion Gap 17.4 (5-19) 10/12/24 13:17 BUN 13 mg/dL (6-20) 10/12/24 13:17 Creatinine 0.7 mg/dL (0.7-1.2) 10/12/24 13:17 GFR Calculation 126.9 mL/min (90-130) 10/12/24 13:17 Glucose 221 mg/dL (65-115) H 10/12/24 13:17 Calculated Osmolality 291 mOsm/kg (285-295) 10/12/24 13:17 Calcium 9.6 mg/dL (8.5-10.5) 10/12/24 13:17 Total Bilirubin 0.4 mg/dL (0.15-1.2) 10/12/24 13:17 AST 14 U/L (0-40) 10/12/24 13:17 ALT 24 U/L (0-41) 10/12/24 13:17 Alkaline Phosphatase 97 U/L (40-130) 10/12/24 13:17 Troponin T Baseline < 6 ng/L (0-15) 10/12/24 13:17 Total Protein 7.2 g/dL (6.6-8.7) 10/12/24 13:17 Albumin 4.5 g/dL (3.5-5.2) 10/12/24 13:17 Globulin 2.7 g/dL (1.3-4.6) 10/12/24 13:17 Lipase 27 U/L (13-60) 10/12/24 13:17 Blood Type A Positive 10/12/24 13:17 Rho(D) Type Rh positive 10/12/24 13:17 Antibody Screen Negative 10/12/24 13:17 All radiology interpretation(s) finalized by discharge Discharge Plan Discharge Patient Disposition: Home Clinical Impression: Chest pain Condition: Stable Prescriptions: No Action No Known Home Medications Discharge Orders: Discharge ED (Routine); Ordered 10/12/24 Ordered By: Victor Manuel Medel Patient Instructions: Chest Pain (ED) Activity Restrictions/Additional Instructions: Please follow-up with cardiology as arranged, await a call to set up this appointment. If you develop any changes in your pain, or any other new concerning symptoms return to the ED for reevaluation as we discussed. Please see the attached patient instructions for further education. Continue taking home medications. Your blood type is A positive. Print Language: Burkinan Coding Level of Care Code ED Real Estate Job Titles for Qi Sullivan
[2024-10-12 13:22] VITALS: BP 145/103; PULSE 73; RESP 17; O2SAT 91
[2024-10-12 13:30] VITALS: BP 141/89; PULSE 71; RESP 13; O2SAT 97
[2024-10-12 13:40] LABS: Basophils # 0.1 10^3/uL (0.0-0.1); Basophils % 0.9 %; Eosinophils # 0.2 10^3/uL (0.0-0.8); Eosinophils % 1.8 %; Hematocrit 52.2 % (37-53); Lymphocytes # 4.1 10^3/uL (0.8-4.8); Lymphocytes % 39.8 %; Mean Corpuscular HGB Conc 35.1 g/dL (30-55); Mean Corpuscular Hemoglobin 31.6 pg (27-33); Mean Corpuscular Volume 90.2 fl (82-101); Mean Platelet Volume 11.2 fL (7.4-10.4); Monocytes # 0.8 10^3/uL (0.2-0.9); Monocytes % 8.2 %; Neutrophils # 5.03 10^3/uL (1.8-7.7); Neutrophils % 48.9 %; Nucleated Red Blood Cells % 0 %; Platelet Count 204 10^3/cmm (157-399); Red Blood Count 5.79 10^6/uL (3.85-5.65); Red Cell Distribution Width 12.8 % (12.1-15.1); White Blood Count 10.27 10^3/uL (3.29-11.43)
[2024-10-12 13:58] LABS: D Dimer <= 0.27 ug/mLFEU (0-0.59)
[2024-10-12 14:00] VITALS: BP 141/89; PULSE 70; RESP 17
[2024-10-12 14:09] LABS: Alanine Aminotransferase 24 U/L (0-41); Albumin Level 4.5 g/dL (3.5-5.2); Alkaline Phosphatase 97 U/L (40-130); Anion Gap 17.4 (5-19); Aspartate Amino Transferase 14 U/L (0-40); Blood Urea Nitrogen 13 mg/dL (6-20); Calcium 9.6 mg/dL (8.5-10.5); Carbon Dioxide 23 mmol/L (22-29); Chloride 101 mmol/L (98-107); Creatinine Clr Calc Pharmacy 193.4912; Globulin 2.7 g/dL (1.3-4.6); Glomerular Filtration Rate 126.9 mL/min (90-130); Glucose 221 mg/dL (65-115); Lipase 27 U/L (13-60); Osmolality Calculated 291 mOsm/kg (285-295); Potassium 4.4 mmol/L (3.5-5.1); Sodium 137 mmol/L (136-145); Total Bilirubin 0.4 mg/dL (0.15-1.2); Total Protein 7.2 g/dL (6.6-8.7)
[2024-10-12 14:11] LABS: Troponin(5th) Baseline < 6 ng/L (0-15)
[2024-10-12 14:46] VITALS: BP 140/77; PULSE 75; O2SAT 96
== END 2024-10-12 14:48 | disposition home or self-care (01) ==
PROVIDERS: Emergency Provider Physician Assistant
DX: R07.9 Chest pain, unspecified (principal); F17.210 Nicotine dependence, cigarettes, uncomplicated
CPT/HCPCS: 71045; 80053; 83690; 84484; 85025; 85378; 86850; 86900; 93005; 99285

== ENCOUNTER → 2024-11-26 13:48 | Outpatient (BNVA) | payer SELFPAY | PROVIDERS: Visit Provider Internal Medicine | DX: R73.9 Hyperglycemia, unspecified (principal) | CPT/HCPCS: 36415; 83036 ==